=== PATIENT | female | born 1970 | race Caucasian/White ===

== ENCOUNTER 2023-01-28 15:17 | Outpatient (CLI) | payer MEDICAID, SELFPAY ==
--- NOTE | 2023-01-28 15:30 | CRLHL7_ITS ---
For Patients: As a result of the Century Cures Act, medical imaging exams and procedure reports are released immediately into your electronic medical record. You may view this report before your referring provider. If you have questions, please contact your health care provider. Indication: Knee pain Technique: Left knee 3 views Comparison: None Findings: Mild narrowing at the lateral facet of the patellofemoral compartment with slight lateral tilt. No joint effusion. Mild narrowing of the medial compartment. 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 Dictated by Arslan Pace MD @ 01/29/2023 9:58:24 AM (Electronically Signed)
== END 2023-01-28 15:18 | disposition home or self-care (01) ==
LOC: RAD 15:17
PROVIDERS: PCP Family Medicine; Visit Provider Family Medicine
DX: M25.562 Pain in left knee (principal); M17.12 Unilateral primary osteoarthritis, left knee
CPT/HCPCS: 73562

== ENCOUNTER 2024-12-19 08:36 | Outpatient (CLI) | payer OTHER, SELFPAY ==
--- NOTE | 2024-12-19 09:51 | W.ANESCHARGE ---
Anesthesia Charges Start Date/Time Anesthesia Start Date: 12/19/24 Anesthesia Start Time: 09:22 Stop Date/Time Anesthesia Stop Date: 12/19/24 Anesthesia Stop Time: 09:50 Coding CPT Codes CPT Codes: TACOS LWR INTST NDSC NOS - [id number] ([id number]) P2 - PATIENT W/MILD SYST DISEASE, QK - PROJECT DEVELOPMENT LEADER 2-4 CNCRNT ANES PROC, QX - SORT LINE SVC W/ MD MED DIRECTION
--- NOTE | 2024-12-19 11:04 | W.ANESCHARGE ---
Anesthesia Charges Start Date/Time Anesthesia Start Date: 12/19/24 Anesthesia Start Time: 09:22 Stop Date/Time Anesthesia Stop Date: 12/19/24 Anesthesia Stop Time: 09:50 Coding CPT Codes CPT Codes: TACOS LWR INTST NDSC NOS - [id number] ([id number]) P2 - PATIENT W/MILD SYST DISEASE, QK - COMPUTER CONSULTANT 2-4 CNCRNT ANES PROC, QX - 4 H YOUTH DEVELOPMENT SPECIALIST SVC W/ MD MED DIRECTION
== END 2024-12-19 08:37 | disposition home or self-care (01) ==
LOC: OP CLINIC 08:40
PROVIDERS: PCP Family Medicine; Visit Provider Surgery
DX: Z12.11 Encounter for screening for malignant neoplasm of colon (principal); D12.8 Benign neoplasm of rectum; K64.8 Other hemorrhoids; Z86.0100 Personal history of colon polyps, unspecified
CPT/HCPCS: 00811; 45385; 88305; J2704